=== PATIENT | female | born 1985 | race Caucasian/White ===

== ENCOUNTER 2016-12-01 13:09 | Emergency (ER) | payer SELFPAY ==
[~2016-12-01] VITALS: Ht 157.5 cm; Wt 58.1 kg
[2016-12-01 13:14] VITALS: BP 123/87
--- NOTE | 2016-12-01 13:26 | NUR ---
Patient to bed 05.
--- NOTE | 2016-12-01 13:28 | NUR ---
PATIENT PRESENTS TO ED WITH C/O VESICLES RASH REDNESS PRURITUS BURING TYPE PAIN TO RIGHT LOWER BACK--HORIZONTAL RASH HX---HTN, DM RX---NON COMPLIANT . DENIES N/V/D; SKIN IS PINK/WARM/DRY; AAOX4 WITH EVEN AND STEADY GAIT; LUNGS CLEAR BL; HR EVEN AND REGULAR; PT DENIES ANY FEVER, CP, SOB, OR COUGH AT THIS TIME; PATIENT STATES PAIN OF 7/10 AT THIS TIME; VSS; PATIENT POSITIONED FOR COMFORT; HOB ELEVATED; BEDRAILS UP X2; BED DOWN. ER MD MADE AWARE OF PT STATUS.
[2016-12-01] MEDS ORDERED: NACL 0.9% 1,000 ML IV SCH (13:32)
[2016-12-01] MEDS ORDERED: NACL 0.9% 2,000 ML IV ONE (13:35)
[2016-12-01] MEDS ORDERED: INSULIN HUMAN REGULAR 100 UNITS/ML 10 ML VIAL IVP ONE ×2 (13:35)
--- NOTE | 2016-12-01 13:55 | NUR ---
PA student evaluating patient at bedside.
--- NOTE | 2016-12-01 14:13 | NUR ---
PT REQUESTED FOR PT AT BEDSIDE, AAO PT CONVERSING WITH IN FULL SENTENCES AT BEDSIDE
[2016-12-01 15:18] VITALS: BP 111/81
--- NOTE | 2016-12-01 15:18 | NUR ---
Patient discharged with v/s stable. Written and verbal after care instructions given and explained. Patient alert, oriented and verbalized understanding of instructions. Ambulatory with steady gait. All questions addressed prior to discharge. ID band removed. Patient advised to follow up with PMD. Rx of ACYCLOVIR, METFORMIN, TYLENOL given. Patient educated on indication of medication including possible reaction and side effects. Opportunity to ask questions provided and answered.
== END 2016-12-01 15:18 | disposition home or self-care (01) ==
LOC: MED 13:09
DX: B02.9 Zoster without complications (principal); E11.65 Type 2 diabetes mellitus with hyperglycemia; R03.0 Elevated blood-pressure reading, without diagnosis of hypertension
CPT/HCPCS: 36415; 80053; 81001; 81025; 82150; 82948; 83690; 85025; 96361; 96374; 99284; J1815

== ENCOUNTER 2017-02-28 16:31 | Emergency (ER) | payer SELFPAY ==
[~2017-02-28] VITALS: Ht 157.5 cm; Wt 56.4 kg
[2017-02-28 16:32] VITALS: BP 116/71
--- NOTE | 2017-02-28 16:48 | NUR ---
PATIENT AMBULATED TO BED 8
[2017-02-28] MEDS: NACL 0.9% 1,000 ML IV ONE ×2 (17:04→17:56)
--- NOTE | 2017-02-28 17:06 | NUR ---
PATIENT PRESENTS TO ED WITH C/O HEADACHE x ONE WEEK. PT STATES SHE FEELS NAUSEATED AND VOMITTED;ALSO STATES SHE FEELS WEAK; SKIN IS PINK/WARM/DRY; AAOX4 WITH EVEN AND STEADY GAIT; LUNGS CLEAR BL; HR EVEN AND REGULAR; PT DENIES ANY FEVER, CP, SOB, OR COUGH AT THIS TIME; PATIENT STATES PAIN OF 8/10 HEADACHE AT THIS TIME;PATIENT POSITIONED FOR COMFORT; HOB ELEVATED; BEDRAILS UP X2; BED DOWN. ALL MONITORS IN PLACED.ER MD MADE AWARE OF PT STATUS.
[2017-02-28] MEDS: METOCLOPRAMIDE 10 MG/2 ML INJ VIAL IVP ONE (17:58)
[2017-02-28] MEDS: diphenhydrAMINE 50 MG/ML VIAL IVP ONE (17:58)
[2017-02-28 18:44] VITALS: BP 116/71
--- NOTE | 2017-02-28 18:44 | NUR ---
Patient discharged with v/s stable. Written and verbal after care instructions given and explained. Patient alert, oriented and verbalized understanding of instructions. Ambulatory with steady gait. All questions addressed prior to discharge. ID band removed. Patient advised to follow up with PMD. Rx of norco and zofran given. Patient educated on indication of medication including possible reaction and side effects. Opportunity to ask questions provided and answered.
== END 2017-02-28 18:44 | disposition home or self-care (01) ==
LOC: MED 16:31
DX: R51 Headache (principal); R11.2 Nausea with vomiting, unspecified; R10.12 Left upper quadrant pain; M54.2 Cervicalgia; E11.9 Type 2 diabetes mellitus without complications; I10 Essential (primary) hypertension
CPT/HCPCS: 81002; 81025; 82948; 96361; 96374; 96375; 99284; J1200; J2765; J7030